=== PATIENT | male | born 1990 | race Two or more races ===

== ENCOUNTER → 2024-07-23 | Outpatient (CLI) | payer BC, SELFPAY ==
--- NOTE | 2024-07-23 | XR_ITS ---
Examination: Cervical spine 4 views Technique: AP, lateral, swimmer's lateral, coned AP odontoid cervical spine 4 views Exam date and time: July 15, 2024 1229 hrs. Indications: Neck pain beginning 4 months ago. Findings: Adequate alignment cervical vertebral bodies No cervical fracture Intact odontoid No significant cervical disc narrowing Impression: No cervical fracture No significant cervical disc narrowing
[2024-07-23 13:42] LABS: Basophils # (Auto) 0.1 Thou/mm3 (0.0-0.2); Basophils % (Auto) 1 % (0-2.5); Eosinophils # (Auto) 0.1 Thou/mm3 (0.0-0.5); Eosinophils % (Auto) 1 % (0-10); Hematocrit 41.3 % (41.0-53.0); Hemoglobin 14.3 g/dL (13.5-16.0); Immature Granulocytes % (Auto) 1 % (0-0); Immature Granulocytes Auto 0.06 Thou/mm3 (0.00-0.00); Lymphocytes # (Auto) 2.9 Thou/mm3 (1.0-4.8); Lymphocytes % (Auto) 30 % (10-50); Mean Corpuscular HGB Conc 34.6 g/dl (31.0-37.0); Mean Corpuscular Hemoglobin 29.5 pg (25.0-35.0); Mean Corpuscular Volume 85 fL (80-100); Monocytes # (Auto) 0.8 Thou/mm3 (0.0-0.8); Monocytes % (Auto) 8 % (0-12); Neutrophils # (Auto) 5.7 Thou/mm3 (1.8-7.7); Neutrophils % (Auto) 60 % (37-80); Nucleated Red Blood Cell % 0 /100 WBC (0); Platelet Count 335 Thou/mm3 (140-440); RDW Standard Deviation 40.2 fL (35.1-43.9); Red Blood Count 4.84 Miln/mm3 (4.50-5.90); White Blood Count 9.7 Thou/mm3 (3.8-10.6)
[2024-07-23 13:50] LABS: Glucose Estimated Average 100 mg/dL (80-131); Hemoglobin A1C 5.1 % Hgb (4.8-6.0)
[2024-07-23 14:06] LABS: Vitamin B12 338 pg/mL (211-911); Vitamin D 25 Hydroxy Total 14.9 ng/mL (7.3-40.2)
[2024-07-23 14:09] LABS: Alanine Aminotransferase 29 U/L (10-49); Albumin/Globulin Ratio 1.9 (1.2-2.2); Alkaline Phosphatase 72 U/L (46-116); Anion Gap 7 (7-16); Aspartate Amino Transferase 23 U/L (0-34); BUN/Creatinine Ratio 24 Ratio (12-20); Bilirubin,Total 0.7 mg/dL (0.3-1.2); Blood Urea Nitrogen 24 mg/dL (9-23); Calcium 9.9 mg/dL (8.3-10.6); Calcium (Corrected) 9.9 mg/dL (8.5-10.1); Carbon Dioxide 27.8 mMol/L (20.0-31.0); Cardiac Risk Estimate 2.9 RATIO (4.0-6.7); Chloride 107 mMol/L (98-107); Cholesterol 128 mg/dL (132-200); Free T4 (Free Thyroxine) 1.38 ng/dL (0.89-1.76); Globulin 2.6 gm/dL (2.3-3.5); Glucose 85 mg/dL (74-106); HDL Cholesterol 44 mg/dL (40-60); LDL Cholesterol,Calculated 70 mg/dL (0-130); Osmolality,Calculated 286 (275-295); Potassium 4.3 mMol/L (3.4-5.1); Sodium 142 mMol/L (136-145); Thyroid Stimulating Hormone 0.95 uIU/mL (0.55-4.78); Total Protein 7.6 gm/dL (5.7-8.2); Triglycerides 72 mg/dL (30-150); eGFR > 60 See Note
[2024-07-30 06:30] LABS: Direct LDL* 81 mg/dL (<100); Testosterone, Free,Dialysis 85.9 pg/mL (35.0-155.0); Testosterone, Total, Dialysis 635 ng/dL (250-1100)
== END | disposition home or self-care (01) ==
LOC: CDIM 12:04 → COPL 13:01
PROVIDERS: PCP Family Medicine; Referring Provider Nurse Practitioner Family; Visit Provider Nurse Practitioner Family
DX: Z13.29 Encounter for screening for other suspected endocrine disorder (principal); M54.2 Cervicalgia; R53.83 Other fatigue
CPT/HCPCS: 36415; 72040; 80053; 80061; 82306; 82607; 83036; 83721; 84402; 84403; 84439; 84443; 85025

== ENCOUNTER → 2024-09-21 | Outpatient (CLI) | payer BC, SELFPAY ==
--- NOTE | 2024-09-21 17:15 | XR_ITS ---
Examination: MRI right lower leg, without contrast Date and time of exam: 1710 hours INDICATIONS: Sports injury 10 days ago followed by posterior severe pain Technique: Multiple axial sagittal and coronal images of the right lower leg have been obtained with the Siemens high-resolution 1.5 Swati MRI scanner. Images obtained include T2-weighted fat-suppressed sagittal sections, TR 3500, TE 46, T2 weighted coronal fat suppressed images, TR 3050, TE 84, T2-weighted transverse fat suppressed images, TR 3260, TE 63, proton density transverse images, TR 4720 TE 46, and T1 weighted coronal images, TR 560, TE 13. Findings: Complete tear of the Achilles tendon, the images do not include the calcaneus Adequate marrow signal tibia and fibula Mild increased signal in the medial head of the gastrocnemius Mild hemorrhage between the gastrocnemius and soleus IMPRESSION: Complete tear of the Achilles tendon, these images do not include the calcaneus Mild hemorrhage in the medial head of the gastrocnemius
== END | disposition home or self-care (01) ==
PROVIDERS: PCP Nurse Practitioner; Referring Provider Nurse Practitioner; Visit Provider Nurse Practitioner
DX: S86.011A Strain of right Achilles tendon, initial encounter (principal); S86.891A Other injury of other muscle(s) and tendon(s) at lower leg level, right leg, initial encounter; Y93.79 Activity, other specified sports and athletics
CPT/HCPCS: 73718